=== PATIENT | female | born 1985 | race Caucasian/White ===

== ENCOUNTER 2017-04-24 19:27 | Emergency (ER) | payer SELFPAY ==
--- NOTE | 2017-04-24 19:36 | PDOC ---
Rapid Medical Evaluation Time Seen by Provider: 04/24/17 19:34 Medical Evaluation: Allergies Allergy/AdvReac Type Severity Reaction Status Date / Time No Known Allergies Allergy Verified 07/17/15 14:23 04/24/17 19:34 I have performed a brief in-person evaluation of this patient. The patient presents with a chief complain of:epigastric/ruq pain x x6h n/v. Denies diarrhea Pertinent physical exam findings:epigastric pain on palp I have ordered the following: CBC,CNO,AMYLASE,LIPASE,UA,UPREG The patient will proceed to the ED for further evaluation.
[2017-04-24 19:39] VITALS: BP 116/66; PULSE 80; TEMP 98; BMI 27.9
[2017-04-24 19:52] LABS: BASO % 0.7 % (0-2.0); EOS % 0.4 % (0-4.5); MCH 26.9 pg (25.7-33.7); MEAN CELL VOLUME 81.4 fl (80-96); NEUT % 77.7 % (42.8-82.8); PLATELET COUNT 315 K/MM3 (134-434); RDW 14.5 % (11.6-15.6); WHITE BLOOD COUNT 15.8 K/mm3 (4.0-10.0)
[2017-04-24 20:07] LABS: URINE APPEARANCE SLCLOUDY; URINE BILIRUBIN NEGATIVE (NEGATIVE); URINE BLOOD NEGATIVE (NEGATIVE); URINE COLOR YELLOW; URINE GLUCOSE (UA) NEGATIVE (NEGATIVE); URINE KETONE TRACE (NEGATIVE); URINE LEUK ESTERASE TRACE (NEGATIVE); URINE NITRITE NEGATIVE (NEGATIVE); URINE UROBILINOGEN NEGATIVE mg/dL (0.2-1.0)
[2017-04-24 20:17] LABS: URINE PROTEIN 1+ (NEGATIVE)
[2017-04-24 20:24] LABS: ALBUMIN 4.2 g/dl (3.4-5.0); AMYLASE 32 U/L (25-115); ANION GAP 8 (8-16); BILIRUBIN,TOTAL 0.4 mg/dL (0.2-1.0); CALCIUM 9.9 mg/dL (8.5-10.1); CO2 30 mmol/L (21-32); CREATININE 0.7 mg/dL (0.55-1.02); GLUCOSE,RANDOM 112 mg/dL (74-106); SGOT/AST 14 U/L (15-37); SGPT/ALT 29 U/L (12-78); TOT PROT 8.4 g/dl (6.4-8.2)
[2017-04-24 20:25] LABS: ALK PHOS 90 U/L (45-117)
[2017-04-24 20:35] LABS: URINE BACTERIA RARE /hpf (NONE SEEN); URINE MUCUS RARE; URINE RBC 1 /hpf (0-3); URINE WBC 1 /hpf (3-5)
--- NOTE | 2017-04-24 21:30 | PDOC ---
History of Present Illness - General Chief Complaint: Pain Stated Complaint: PAIN Time Seen by Provider: 04/24/17 19:34 Past History - Past Medical History Allergies/Adverse Reactions: Allergies Allergy/AdvReac Type Severity Reaction Status Date / Time No Known Allergies Allergy Verified 04/24/17 19:39 Home Medications: Ambulatory Orders Iron 1 tab PO DAILY 07/17/15 Tablet 1 tab PO DAILY 07/17/15 Acetaminophen [Tylenol .Regular Strength -] 650 mg PO Q3H PRN #0 tablet Ferrous Sulfate [Feosol] 325 mg PO BID #60 ud 07/19/15 Ibuprofen [Motrin -] 200 mg PO Q4H PRN #0 tablet 07/19/15 Vitamins (Sjr) - 1 tab PO DAILY #30 tablet 07/19/15 Asthma: No Cancer: No Cardiac Disorders: No COPD: No Diabetes: No HTN: No Seizures: No Thyroid Disease: No - Suicide/Smoking/Psychosocial Hx Smoking History: Never smoked Have you smoked in the past 12 months: No Hx Alcohol Use: No Drug/Substance Use Hx: No Hx Substance Use Treatment: No *Physical Exam - Vital Signs Last Vital Signs Temp Pulse Resp BP Pulse Ox 98 F 80 18 116/66 100 04/24/17 19:35 04/24/17 19:35 04/24/17 19:35 04/24/17 19:35 04/24/17 19:35 ED Treatment Course - LABORATORY CBC & Chemistry Diagram: 04/24/17 19:44 04/24/17 19:44 - ADDITIONAL ORDERS Additional order review: Laboratory Results 04/24/17 04/24/17 19:44 19:44 Sodium 138 Potassium 3.3 L D Chloride 100 Carbon Dioxide 30 D Anion Gap 8 BUN 12 Creatinine 0.7 D Creat Clearance w eGFR > 60 Random Glucose 112 H D Calcium 9.9 Total Bilirubin 0.4 AST 14 L D ALT 29 D Alkaline Phosphatase 90 D Total Protein 8.4 H D Albumin 4.2 D Total Amylase 32 Lipase 94 Urine Color Yellow Urine Appearance Slcloudy Urine pH 8.0 Ur Specific [place] 1.020 Urine Protein 1+ H Urine Glucose (UA) Negative Urine Ketones Trace H Urine Blood Negative Urine Nitrite Negative Urine Bilirubin Negative Urine Urobilinogen Negative Urine WBC (Auto) 1 Urine RBC (Auto) 1 Ur Epithelial Cells Rare Urine Bacteria Rare Urine Mucus Rare Urine HCG, Qual Negative 04/24/17 19:44 RBC 4.48 D MCV 81.4 MCHC 33.0 RDW 14.5 MPV 9.0 D Neutrophils % 77.7 Lymphocytes % 14.7 D Monocytes % 6.5 Eosinophils % 0.4 Basophils % 0.7 *DC/Admit/Observation/Transfer Diagnosis at time of Disposition: Biliary colic - Discharge Dispostion Disposition: HOME Condition at time of disposition: Stable - Referrals Referrals: Elia Storm MD [Staff Physician] - - Patient Instructions Printed Discharge Instructions: DI for Biliary Colic Additional Instructions: Bruner visto en la marcus emergencias por dolor de abdomen con nausea y vomito. Hicemos unos laboratorios y janett sonograma de la vesicula y creemos que no tiene janett infeccion de la vesicula ahora, xuan es muy importante hacer janett deana con un gastroenterologo esta semana. Llame al angelica en miguel papel para hacer janett deana. Tambien por favor regresa a la marcus emergencias si el dolor regresa o si tiene fiebre, cambios de color del piel, mareos, o otra sintoma. Print Language: URDU - Post Discharge Activity
--- NOTE | 2017-04-24 21:34 | PDOC ---
History of Present Illness - General Chief Complaint: Pain Stated Complaint: PAIN Time Seen by Provider: 04/24/17 19:34 History Source: Patient Exam Limitations: No Limitations - History of Present Illness Initial Comments: This is a 31 YOF with h/o cholestasis during requiring induction (in 2016) who presents with fluctuating RUQ and epigastric pain since noon today. The pain was initially 10/10 and non-radiating and was initially fluctuating but has since subsided completely. She ate healthy food (vegetables) before the onset of pain today and generally has a healthy diet. She denies any prior episodes, she drinks only occasionally and has not had any drinks in the past several days, and her only associated symptoms were nausea and three episodes of vomiting when the pain was the worst. She denies SOB, chest pain, fever, chills, diarrhea, constipation, black or white stool, dysuria, or hematuria. Past History - Past Medical History Allergies/Adverse Reactions: Allergies Allergy/AdvReac Type Severity Reaction Status Date / Time No Known Allergies Allergy Verified 04/24/17 19:39 Home Medications: Ambulatory Orders Iron 1 tab PO DAILY 07/17/15 Tablet 1 tab PO DAILY 07/17/15 Acetaminophen [Tylenol .Regular Strength -] 650 mg PO Q3H PRN #0 tablet Ferrous Sulfate [Feosol] 325 mg PO BID #60 ud 07/19/15 Ibuprofen [Motrin -] 200 mg PO Q4H PRN #0 tablet 07/19/15 Vitamins (Sjr) - 1 tab PO DAILY #30 tablet 07/19/15 Asthma: No Cancer: No Cardiac Disorders: No COPD: No Diabetes: No HTN: No Seizures: No Thyroid Disease: No - Suicide/Smoking/Psychosocial Hx Smoking History: Never smoked Have you smoked in the past 12 months: No Hx Alcohol Use: No Drug/Substance Use Hx: No Hx Substance Use Treatment: No Review of Systems - Review of Systems Able to Perform ROS?: Yes Constitutional: No: Chills, Fever, Unexplained wgt Loss HEENTM: No: Nose Congestion, Throat Pain Respiratory: No: Cough, Shortness of Breath Cardiac (ROS): No: Chest Pain, Palpitations ABD/GI: Yes: Nausea, Vomiting, Other (RUQ and epigastric pain). No: Constipated , Diarrhea : No: Burning, Dysuria Musculoskeletal: No: Back Pain, Neck Pain Integumentary: No: Bruising, Rash Neurological: No: Headache, Numbness, Tingling, Weakness, Dizziness Endocrine: No: Unexplained Weight Gain, Unexplained Weight Loss *Physical Exam - Vital Signs Last Vital Signs Temp Pulse Resp BP Pulse Ox 98 F 80 18 116/66 100 04/24/17 19:35 04/24/17 19:35 04/24/17 19:35 04/24/17 19:35 04/24/17 19:35 - Physical Exam General Appearance: Yes: Nourished, Appropriately Dressed, Other (well- appearing Tongan-speaking adult female who appears fit and in no distress, appears comfortable). No: Apparent Distress, Obese HEENT: positive: EOMI, Normal Voice, Hearing Grossly Normal. negative: Scleral Icterus (R), Scleral Icterus (L), Nasal Congestion Neck: positive: Trachea midline, Supple. negative: Tender, Rigid Respiratory/Chest: positive: Lungs Clear, Normal Breath Sounds. negative: Respiratory Distress, Crackles, Rhonchi, Stridor, Wheezing Cardiovascular: positive: Regular Rhythm, Regular Rate. negative: Murmur Gastrointestinal/Abdominal: positive: Normal Bowel Sounds, Soft, Other (RUQ and epigastrium nontender at the time of my exam, negative Mckee's sign, no ttp McBurney's point). negative: Tender, Organomegaly, Pulsatile Mass, Guarding Musculoskeletal: positive: Normal Inspection. negative: Decreased Range of Motion, Vertebral Tenderness Extremity: positive: Normal Capillary Refill, Normal Inspection, Normal Range of Motion. negative: Tender, Cyanosis Integumentary: positive: Normal Color, Dry, Warm. negative: Erythema, Rash, Bruising Neurologic: positive: salary manager II-XII NML intact (grossly), Fully Oriented, Alert, Normal Mood/Affect, Normal Response, Motor Strength /5 ED Treatment Course - LABORATORY CBC & Chemistry Diagram: 04/24/17 19:44 04/24/17 19:44 - ADDITIONAL ORDERS Additional order review: Laboratory Results 04/24/17 04/24/17 04/24/17 19:44 19:44 19:44 WBC 15.8 H D RBC 4.48 D Hgb 12.1 D Hct 36.5 D MCV 81.4 MCH 26.9 MCHC 33.0 RDW 14.5 Plt Count 315 D MPV 9.0 D Neutrophils % 77.7 Lymphocytes % 14.7 D Monocytes % 6.5 Eosinophils % 0.4 Basophils % 0.7 Sodium 138 Potassium 3.3 L D Chloride 100 Carbon Dioxide 30 D Anion Gap 8 BUN 12 Creatinine 0.7 D Creat Clearance w eGFR > 60 Random Glucose 112 H D Calcium 9.9 Total Bilirubin 0.4 AST 14 L D ALT 29 D Alkaline Phosphatase 90 D Total Protein 8.4 H D Albumin 4.2 D Total Amylase 32 Lipase 94 Urine Color Yellow Urine Appearance Slcloudy Urine pH 8.0 Ur Specific [place] 1.020 Urine Protein 1+ H Urine Glucose (UA) Negative Urine Ketones Trace H Urine Blood Negative Urine Nitrite Negative Urine Bilirubin Negative Urine Urobilinogen Negative Urine WBC (Auto) 1 Urine RBC (Auto) 1 Ur Epithelial Cells Rare Urine Bacteria Rare Urine Mucus Rare Urine HCG, Qual Negative 04/24/17 19:44 RBC 4.48 D MCV 81.4 MCHC 33.0 RDW 14.5 MPV 9.0 D Neutrophils % 77.7 Lymphocytes % 14.7 D Monocytes % 6.5 Eosinophils % 0.4 Basophils % 0.7 - RADIOLOGY Radiology Studies Ordered: Category Date Time Status ABDOMEN US -LIMITED [US] Stat Ultrasound 04/24/17 21:28 Ordered Medical Decision Making - Medical Decision Making This is a 31 YOF with h/o cholestasis during who presents with RUQ/ epig pain, n/vx3 today. She appears fit and states she has a healthy diet. On exam vitals wnl and she appears very comfortable at the time of my exam, nontender abdomen. DDX IBNLT biliary colic, cholecystitis, PUD, gastritis, pancreatitis, PE ( unlikely) etc. Ordered in RME is CBCD, CMP, lipase, UA cx, hCG. RME workup yields WBC in the 15k's, potassium of 3.3, otherwise non-directive. 04/24/17 23:29 Patient remains nontender. Her US RUQ shows borderline GB wall thickening but no stones or other e/o cholecystitis. Her symptoms have resolved. Ordered is 40 mEq potassium for mild hypokalemia. The patient is appropriate for DC home with close OP followup. Return precautions are discussed. She is given referral info for GI. *DC/Admit/Observation/Transfer Diagnosis at time of Disposition: Biliary colic - Discharge Dispostion Disposition: HOME Condition at time of disposition: Stable Admit: No - Referrals Referrals: Elia Storm MD [Staff Physician] - - Patient Instructions Printed Discharge Instructions: DI for Biliary Colic Additional Instructions: Bruner visto en la marcus emergencias por dolor de abdomen con nausea y vomito. Hicemos unos laboratorios y janett sonograma de la vesicula y creemos que no tiene janett infeccion de la vesicula ahora, xuan es muy importante hacer janett deana con un gastroenterologo esta semana. Llame al angelica en miguel papel para hacer janett deana. Tambien por favor regresa a la marcus emergencias si el dolor regresa o si tiene fiebre, cambios de color del piel, mareos, o otra sintoma. Print Language: HUNGARIAN - Post Discharge Activity
[2017-04-24 22:53] LABS: URINE LEUK ESTERASE Negative (NEGATIVE)
[2017-04-24] MEDS ORDERED: POTASSIUM CHLORIDE TABS 20 MEQ TABLET.ER (FP) PO ONE ×2 (23:31→23:57)
--- NOTE | 2017-04-24 23:34 | PDOC ---
Attending Attestation - Resident Resident Name: Trini Mosqueda - ED Attending Attestation I have performed the following: I have examined & evaluated the patient, The case was reviewed & discussed with the resident, I agree w/resident's findings & plan, Exceptions are as noted - HPI HPI: 04/24/17 23:29 31 F with no PMH presents to ER with 8 hours of abdominal pain and nausea and vomiting. Pt states that she had sudden onset RUQ pain that was non-radiating. No association with food. Pt vomited 3 times. No diarrhea. Pt states that the pain has come and gone in waves since onset. Denies F/C. Denies lower abdominal pain. Denies vaginal bleeding/discharge. No dysuria. No flank pain. Pt states that the pain has currently subsided. - Physicial Exam PE: 04/24/17 23:30 "GENERAL: Awake, alert, and fully oriented, in no acute distress HEAD: No signs of trauma EYES: PERRLA, EOMI, sclera anicteric, conjunctiva clear ENT: Auricles normal inspection, hearing grossly normal, nares patent, oropharynx clear without exudates. Moist mucosa NECK: Nontender, no stepoffs, Normal ROM, supple, no lymphadenopathy, JVD, or masses LUNGS: Breath sounds equal, clear to auscultation bilaterally. No wheezes, and no crackles HEART: Regular rate and rhythm, normal S1 and S2, no murmurs, rubs or gallops ABDOMEN: Soft, nontender, normoactive bowel sounds. No guarding, no rebound. No masses EXTREMITIES: Normal range of motion, no edema. No clubbing or cyanosis. No cords, erythema, or tenderness NEUROLOGICAL: Cranial nerves II through XII intact. 5/5 strength and sensation in all extremities, Normal speech, normal gait SKIN: Warm, Dry, normal turgor, no rashes or lesions noted. " - Medical Decision Making 04/24/17 23:30 31 F with colicky RUQ pain. On my examination, pt has completely benign abdomen with negative miranda's. However, presentation is consistent with possible cholelithiasis/cholecystitis. - Labs, UPT, UA - RUQ sono 04/24/17 23:31 RUQ ultrasound shows no gallstones with borderline GB wall thickening. CBD normal, no perocholecystic fluid, no GB distention. Pt reassessed - continues to have benign abdomen. Given pt's resolution of symptoms and fairly unremarkable US, there is no indication for surgical intervention at this time. Will give pt f/u with GI clinic.
== END 2017-04-24 23:56 | disposition home or self-care (01) ==
LOC: JER 19:27
DX: R10.84 Generalized abdominal pain (principal)
CPT/HCPCS: 36415; 76705-TC; 80053; 81003; 81015; 82150; 83690; 84703; 85025; 99281-25; 99283-25